=== PATIENT | female | born 1995 | race Two or more races ===

== ENCOUNTER 2017-03-18 20:02 | Emergency (ER) | payer MEDICAID ==
[~2017-03-18] VITALS: Ht 154.9 cm; Wt 59.0 kg
[2017-03-18 20:23] VITALS: BP 124/89
--- NOTE | 2017-03-18 20:33 | Emergency Room Report ---
History of Present Illness General Chief Complaint: Animal Bite Source: Patient Present Illness HPI 22-year-old female presents emergency department complaining of 6/10 in severity pain, swelling and she with a tingling sensation to the left index finger that is now radiating up to the forearm time 30 minutes. Patient states she was cleaning the house when she believes she was bitten by an insect she had acute onset of pain and symptoms have been progressive. Patient denies swelling of the lips or tongue, wheezing, difficulty breathing patient denies history of allergies her allergies to insects. She denies bleeding, bruising, discoloration other than erythema. Patient states she has exacerbation of pain upon bending the affected finger. Patient states she is up-to-date with vaccinations including tetanus. Denies numbness tingling or loss of sensation or gross motor movements of the extremities, incontinence of bowel or bladder. Denies CP, Palpitations, LOC, AMS, dizziness, Changes in Vision, Sensation, paresthesias, or a sudden severe headache. Allergies: Coded Allergies: No Known Allergies (Unverified , 03/18/17) Patient History Past Medical History: see triage record Past Surgical History: none Pertinent Family History: none Last Menstrual Period: 03/16/17 Now: No Immunizations: UTD Reviewed Nursing Documentation: PMH: Agreed, PSxH: Agreed Nursing Documentation-PMH Past Medical History: No Stated History Review of Systems All Other Systems: negative except mentioned in HPI Physical Exam Vital Signs Date Time Temp Pulse Resp B/P Pulse Ox O2 Delivery O2 Flow Rate FiO2 03/18/17 20:12 98.1 74 16 124/89 99 Room Air Sp02 EP Interpretation: reviewed, normal General Appearance: no apparent distress, alert, GCS 15, non-toxic Head: normocephalic, atraumatic Eyes: bilateral eye PERRL, bilateral eye normal inspection ENT: hearing grossly normal, normal pharynx, no angioedema, normal voice Neck: full range of motion, supple/symm/no masses Respiratory: lungs clear, normal breath sounds, no wheezing, speaking full sentences Cardiovascular #1: regular rate, rhythm, no edema Musculoskeletal: back normal, gait/station normal, normal range of motion, tender - TTp to the medial left index trevor, mild swelling and erythema noted. Neurologic: alert, oriented x3, responsive, motor strength/tone normal, sensory intact, speech normal Psychiatric: judgement/insight normal, memory normal, mood/affect normal Skin: normal color, warm/dry, well hydrated, rash - blanching erythema of the left index finger radiating up the volar left fore arm. Lymphatic: no adenopathy Medical Decision Making PA Attestation Dr. rosa is my supervising Physician whom patient management has been discussed with. Diagnostic Impression: Primary Impression: Insect bite Qualified Codes: W57.XXXA - Bitten or stung by nonvenomous insect and other nonvenomous arthropods, initial encounter Additional Impression: Acute allergic reaction Qualified Codes: T78.40XA - Allergy, unspecified, initial encounter ER Course 22-year-old female presents emergency department complaining of 6/10 in severity pain, swelling and she with a tingling sensation to the left index finger that is now radiating up to the forearm time 30 minutes. Patient states she was cleaning the house when she believes she was bitten by an insect she had acute onset of pain and symptoms have been progressive. Patient denies swelling of the lips or tongue, wheezing, difficulty breathing patient denies history of allergies her allergies to insects. She denies bleeding, bruising, discoloration other than erythema. Patient states she has exacerbation of pain upon bending the affected finger. Patient states she is up-to-date with vaccinations including tetanus. Ddx considered but are not limited to cellulitis, scabies, insect bites, tic bites, spider bites, contact dermatitis, Drug reaction, allergic reaction, fungal infection, lice. Vital signs: are WNL, pt. is afebrile H&PE are most consistent with allergic reaction to insect bite/sting. ORDERS: none required at this time, the diagnosis is clinical ED INTERVENTIONS: -Pt. given ICE PACK -25 mg Benadryl PO -60mg Solu-medrol IM - 600mg Motrin PO - Bacitracin is applied to left index finger. -- re-evaluation of the pt. she states her symptoms have improved after above interventions. DISCHARGE: At this time pt. is stable for d/c to home. Will provide printed patient care instructions, and any necessary prescriptions. Care plan and follow up instructions have been discussed with the patient prior to discharge. Last Vital Signs Date Time Temp Pulse Resp B/P Pulse Ox O2 Delivery O2 Flow Rate FiO2 03/18/17 20:23 98.1 16 124/89 99 Room Air 03/18/17 20:12 74 Disposition: HOME, SELF-CARE Condition: Stable Scripts Diphenhydramine Hcl (BENADRYL ALLERGY) 25 Mg Tablet 25 MG PO Q6HR for 7 Days, #30 TAB Prov: Lona Pierre 03/18/17 Ibuprofen* (MOTRIN*) 600 Mg Tablet 600 MG ORAL THREE TIMES A DAY, #30 TAB 0 Refills Prov: Lona Pierre 03/18/17 Bacitracin/Polymyxin B Sulfate (BACITRACIN-POLYMYXIN OINTMENT) 28.35 Gm Oint...g. 1 APPLIC TP BID, #28.3 GM Prov: Lona Pierre 03/18/17 Patient Instructions: Insect Bite, [id number] Additional Instructions: Take medications as directed. Follow up with PCP in 3-5 days Return sooner to ED if new symptoms occur, or current symptoms become worse. Do not drink alcohol, drive, or operate heavy machinery while taking Benadryl as this may cause drowsiness. - Please note that this Emergency Department Report was dictated using [employer] window installer technology software, occasionally this can lead to erroneous entry secondary to interpretation by the dictation equipment. Lona Pierre Mar 18, 2017 20:33
[2017-03-18] MEDS ORDERED: Bacitracin Oint UD TOPIC ONE (20:45)
[2017-03-18] MEDS ORDERED: DiphenhydrAMINE 25mg/10ml Elixir ORAL ONE (20:45)
[2017-03-18] MEDS ORDERED: Solu-MEDROL 125mg Inj IM ONE (20:45)
[2017-03-18] MEDS ORDERED: BENADRYL ALLERG25 M1 PO (21:12)
[2017-03-18] MEDS ORDERED: IBUPROFEN600 MG ORAL (21:12)
[2017-03-18] MEDS ORDERED: BACITRACIN-P28.35 GM TP (21:12)
[2017-03-18 21:17] VITALS: BP 124/89
== END 2017-03-18 21:17 | disposition home or self-care (01) ==
LOC: EMR 21:10
DX: S60.461A Insect bite (nonvenomous) of left index finger, initial encounter (principal); W57.XXXA Bitten or stung by nonvenomous insect and other nonvenomous arthropods, initial encounter; Y92.89 Other specified places as the place of occurrence of the external cause; T78.40XA Allergy, unspecified, initial encounter; R21 Rash and other nonspecific skin eruption
CPT/HCPCS: 96372; 99284; J2930